=== PATIENT | female | born 1960 | race Caucasian/White ===

== ENCOUNTER 2018-01-11 11:33 | Inpatient (IN) | payer OTHER ==
[2018-01-11 12:13] VITALS: BMI 27.4
--- NOTE | 2018-01-11 14:52 | HP ---
CIWA Score - CIWA Score Nausea/Vomitin Muscle Tremors: 2 Anxiety: 2 Agitation: 2 Paroxysmal Sweats: 3 Orientation: 2-Disoriented Date<2 days Tacttile Disturbances: 2-Mild Itch/Numbness/Burn Auditory Disturbances: 0-None Visual Disturbances: 3-Moderate Sensitivity Headache: 0-None Present CIWA-Ar Total Score: 21 Admission ROS S - HPI Chief Complaint: "I need help for drinking Alcohol." Patient is here to detox from Alcohol. Allergies/Adverse Reactions: Allergies Allergy/AdvReac Type Severity Reaction Status Date / Time egg Allergy Vomiting Verified 01/11/18 12:27 lactose AdvReac Verified 01/11/18 12:29 pneumococcal vaccine AdvReac Verified 01/11/18 12:29 [From Pneumovax 23] shellfish derived AdvReac Rash Verified 01/11/18 12:28 topiramate AdvReac Rash Verified 01/11/18 12:28 History of Present Illness: Patient is a 57 YO female here to detox from Alcohol. This is patient's first Detox admission at [facility]. Patient had 2 previous Detox admissions at [facility] ([place], [place] both approx. 2 years ago. Longest {eroid of sobriety in recent years: approx. 1.5 years (2016 - 2017). Patient is a client at [facility] - Ebola screening Have you traveled outside of the country in the last 21 days: No Have you had contact with anyone from an Ebola affected area: No Have you been sick,other than usual withdrawal symptoms: No Do you have a fever: No - Review of Systems Constitutional: Chills, Diaphoresis, Fever, Loss of Appetite, Malaise, Night Sweats, Changes in sleep, Unintentional Wgt. Loss (Lost approx. 10 lbs. over last 2 months.) EENT: reports: Tearing Respiratory: reports: No Symptoms reported Cardiac: reports: Palpitations, Other ("Blackouts," patient reprots that she loses awarenes of her surroundings. Last episode: approx. 3 weeks ago.) GI: reports: Constipated, Poor Appetite, Indigestion, Abdominal cramping : reports: No Symptoms Reported Musculoskeletal: reports: Back Pain, Joint Pain, Muscle Pain, Neck Pain, Joint Stiffness Integumentary: reports: No Symptoms Reported Neuro: reports: Headache, Numbness (Toes of Right Foot.), Tingling (Toes of Right Foot.), Tremors Endocrine: reports: No Symptoms Reported Hematology: reports: Anemia (Uncertain about type. No current treatment.) Psychiatric: reports: Judgement Intact, Mood/Affect Appropiate, Orientated x3, Anxious, Depressed (Takes meds.) Other Systems: Reviewed and Negative Patient History - Patient Medical History Hx Anemia: Yes (Uncertain about type; No current meds.) Hx Asthma: Yes (Meds.) Hx Chronic Obstructive Pulmonary Disease (COPD): No Hx Cancer: No Hx Cardiac Disorders: Yes (Arrythmia, Uncertain about specific type; Takes ASA Daily.) Hx Congestive Heart Failure: No Hx Hypertension: No Hx Hypercholesterolemia: No Hx Pacemaker: No HX Cerebrovascular Accident: No Hx Seizures: No Hx Dementia: No Hx Diabetes: No Hx Gastrointestinal Disorders: No Hx Liver Disease: No Hx Genitourinary Disorders: No Hx Sexually Transmitted Disorders: No Hx Renal Disease (ESRD): No Hx Thyroid Disease: No Hx Human Immunodeficiency Virus (HIV): No (Last Tested: 12/2017: NEGATIVE.) Hx Hepatitis C: No (Unable to recall when last tested.) Hx Depression: Yes (Meds.) Hx Suicide Attempt: Yes (Hanging (2016). PATIENT DENIES CURRENT SI / HI.) Hx Bipolar Disorder: Yes Hx Schizophrenia: No Other Medical History: DENIES. - Patient Surgical History Past Surgical History: Yes Hx Neurologic Surgery: No Hx Cataract Extraction: No Hx Cardiac Surgery: No Hx Lung Surgery: No Hx Breast Biopsy: No Hx Abdominal Surgery: Yes (2 HERNIA REPAIRS (Age 8 months; Age 24).) Hx Appendectomy: No Hx Cholecystectomy: No Hx Genitourinary Surgery: No Hx Section: No Hx Orthopedic Surgery: No Other Surgical History: BACK SURGERY 2008, 2010, 2012; LIPOMA REMIVED FROM RIGHT ARM: @ 2009. Anesthesia Reaction: No - PPD History Previous Implant?: Yes Documented Results: Negative w/o proof Implanted On Prior R Admission?: No PPD to be Administered?: Yes - Reproductive History Patient is a Female of Child Bearing Age (11 -55 yrs old): Yes Last Menstrual Period: 01/09/09 Patient : No - Smoking Cessation Smoking history: Current every day smoker Have you smoked in the past 12 months: Yes Aproximately how many cigarettes per day: 7 Cigars Per Day: 0 Hx Chewing Tobacco Use: No Initiated information on smoking cessation: No 'Breaking Loose' booklet given: 01/11/18 (GIVEN TO PATIENT.) - Substance & Tx. History Hx Alcohol Use: Yes Hx Substance Use: Yes Substance Use Type: Alcohol, Cocaine Hx Substance Use Treatment: Yes (@ previous Detox admissions at [facility], 2016).) - Substances Abused Alcohol Route: Oral Frequency: Daily Amount used: 3 NIPS OF VODKA, 1 CAN OF BUDWEISER Age of first use: 38 Date of Last Use: 01/11/18 Cocaine Route: Inhalation Frequency: 3-6 times per week Amount used: $40 Age of first use: 28 Date of Last Use: 01/06/18 Family Disease History - Family Disease History Family Disease History: CA: Father (Rectal Ca.), Mother (Lymphatic CA.), Other: Sister (HIV/AIDS; .) Admission Physical Exam [facility] - Vital Signs Vital Signs: Vital Signs - 24 hr 01/11/18 12:10 Temperature 97.0 F L Pulse Rate 55 L Respiratory 20 Rate Blood Pressure 115/81 - Physical General Appearance: Yes: No Apparent Distress, Nourished, Appropriately Dressed , Tremorous, Anxious, Other (Patient ambulates with asssitance of a walker.) HEENTM: Yes: Hearing grossly Normal, Normocephalic, Normal Voice, EJ, Pharynx Normal Respiratory: Yes: Chest Non-Tender, Lungs Clear, No Respiratory Distress, No Accessory Muscle Use Neck: Yes: No masses,lesions,Nodules, Supple, Trachea in good position Breast: Yes: Breast Exam Deferred Cardiology: Yes: Regular Rhythm, Regular Rate, S1, S2 Abdominal: Yes: Normal Bowel Sounds, Non Tender, Flat, Soft Genitourinary: Yes: Within Normal Limits Back: Yes: Decreased Range of Motion Musculoskeletal: Yes: Gait Steady, Back pain, Joint Stiffness, Muscle Pain Extremities: Yes: Normal Capillary Refill, Tremors Neurological: Yes: Fully Oriented, Alert, Normal Mood/Affect, Normal Response Integumentary: Yes: Normal Color, Dry, Warm Lymphatic: Yes: Within Normal Limits - Diagnostic (1) Alcohol dependence with uncomplicated withdrawal Current Visit: Yes Status: Acute (2) Cocaine dependence, uncomplicated Current Visit: Yes Status: Acute (3) Nicotine dependence Current Visit: Yes Status: Chronic Qualifiers: Nicotine product type: cigarettes Substance use status: uncomplicated Qualified Code(s): F17.210 - Nicotine dependence, cigarettes, uncomplicated (4) History of depression Current Visit: Yes Status: Chronic (5) History of bipolar disorder Current Visit: Yes Status: Chronic (6) History of anemia Current Visit: Yes Status: Suspected (7) History of cardiac arrhythmia Current Visit: Yes Status: Suspected (8) Asthma Current Visit: Yes Status: Acute Qualifiers: Asthma severity: moderate Asthma persistence: persistent Asthma complication type: uncomplicated Qualified Code(s): J45.40 - Moderate persistent asthma, uncomplicated Cleared for Admission [facility] - Detox or Rehab S Level of Care: Medically Managed Detox Regimen/Protocol: Librium [facility] Breath Alcohol Content Breath Alcohol Content: 0.002 Urine Pregancy Test - Result Urine Test Results: Negative- NO Line Present Urine Drug Screen - Results Drug Screen Negative: No Urine Drug Screen Results: MIKKI-Cocaine, MTD-Methadone, TCA-Tricyclic Antidepress
[2018-01-11] MEDS ORDERED: LOPERAMIDE HCL 2 MG CAPSULE PO PRN (15:30)
[2018-01-11] MEDS ORDERED: IBUPROFEN 400 MG TABLET (FP) PO PRN (15:30)
[2018-01-11] MEDS ORDERED: MAGNESIUM HYDROX 2400MG/30ML ORAL SUSPENSION 30 ML CUP PO PRN (15:30)
[2018-01-11] MEDS ORDERED: chlordiazePOXIDE HCL 25 MG CAPSULE PO PRN (15:30)
[2018-01-11] MEDS ORDERED: guaiFENesin/D-METHORPHAN HB 10 ML UNIT-DOSE CUPS PO PRN (15:30)
[2018-01-11] MEDS ORDERED: P-EPHED 60MG/TRIPROLIDI 2.5MG TABLET PO PRN (15:30)
[2018-01-11] MEDS ORDERED: MAGNESIUM CITRATE 300 ML BOTTLE PO PRN (15:30)
[2018-01-11] MEDS ORDERED: NICOTINE POLACRILEX 2 MG GUM BUC PRN (15:30)
[2018-01-11] MEDS ORDERED: MAG HYDROX/AL HYDROX/SIMETH 30 ML UNIT-DOSE CUP PO PRN (15:30)
[2018-01-11] MEDS ORDERED: ACETAMINOPHEN 325 MG TABLET (FP) PO PRN (15:30)
[2018-01-11] MEDS ORDERED: MENTHOL/PHENOL 1 EACH UD MM PRN (15:30)
[2018-01-11] MEDS ORDERED: chlordiazePOXIDE HCL 25 MG CAPSULE PO ONE (15:45)
[2018-01-11] MEDS: chlordiazePOXIDE HCL 25 MG CAPSULE PO SCH ×2 (18:47→23:03)
[2018-01-11] MEDS ORDERED: MELATONIN 5 MG TABLETS PO PRN (22:00)
[2018-01-11] MEDS: HYDROCORTISONE 0.5% TOPICAL CREAM 30 GM TUBE TP SCH (23:03)
[2018-01-11] MEDS: SODIUM CHLORIDE NASAL SPRAY 44 ML BOTTLE NS SCH (23:04)
[2018-01-11] MEDS: BUDESONIDE/FORMETEROL FUMARATE 160/4.5 mcg INHALER IH SCH (23:04)
[2018-01-11] MEDS: THIAMINE HCL 100 MG TABLET (FP) PO SCH (23:04)
[2018-01-12] MEDS ORDERED: METHADONE HCL 10 MG TABLET (FOR DETOX USE ONLY) ONE (05:24)
[2018-01-12] MEDS ORDERED: METHADONE HCL 40 MG DISPERSABLE TABLET ONE (05:24)
[2018-01-12] MEDS ORDERED: METHADONE HCL 10 MG TABLET PO SCH ×2 (06:00)
[2018-01-12] MEDS: METHADONE 40 MG, METHADONE (DETOX) 20 MG PO SCH (07:16)
[2018-01-12] MEDS: chlordiazePOXIDE HCL 25 MG CAPSULE PO SCH ×4 (07:20→22:38)
--- NOTE | 2018-01-12 09:29 | CONSULT ---
[facility] Psychiatric Consult - Data Date of interview: 01/12/18 Admission source: [facility] Identifying data: This is 57 years old female, single mother of five, living with partner, with no psychiatric hospitalization history, on SSI, is here to detox from Alcohol, reporting Alcohol withdrawal symptoms. This is patient's first Detox admission at [facility]. Reports abusing Cocaine and Methadon as well. Currently onn MMTP 60mg pr day. Substance Abuse History: - Smoking Cessation. Smoking history: Current every day smoker. Have you smoked in the past 12 months: Yes. Aproximately how many cigarettes per day: 7. Cigars Per Day: 0. Hx Chewing Tobacco Use: No. Initiated information on smoking cessation: No. 'Breaking Loose' booklet given : 01/11/18 (GIVEN TO PATIENT.). - Substance & Tx. History. Hx Alcohol Use: Yes. Hx Substance Use: Yes. Substance Use Type: Alcohol, Cocaine. Hx Substance Use Treatment: Yes (@ previous Det[place] admissions at [facility] 2016[place]). - Substances Abused. Alcohol. Route: Oral. Frequency: Daily. Amount used: 3 NIPS OF VODKA, 1 CAN OF BUDWEISER. Age of first use: 38. Date of Last Use: 01/11/18. Cocaine. Route: Inhalation. Frequency: 3-6 times per week. Amount used: $40. Age of first use: 28. Date of Last Use: 01/06/18 Medical History: Asthma, Anemia history, MMTP 60mg /day Psychiatric History: Patient reports history of depression anhd anxiety, reports taking prior jaycee admission: Buspar 15mg poqd. Ambien 10mg po qhs. Patient reports suicidal attempt by hanging herself on abput 30 years ago, no suicidal history since then. As per computer carries Bipolar Disorder. Physical/Sexual Abuse/Trauma History: Denies Additional Comment: Urine Drug Screen Results: MIKKI-Cocaine, MTD-Methadone, TCA- Tricyclic Antidepress. Buspar 15mg poqd. Ambien 10mg po qhs Mental Status Exam - Mental Status Exam Alert and Oriented to: Person Cognitive Function: Fair Patient Appearance: Unkempt Mood: Sad Affect: Mood Congruent Patient Behavior: Cooperative Speech Pattern: Appropriate Voice Loudness: Mildly Soft/Quiet Thought Process: Goal Oriented Thought Disorder: Being Controlled Hallucinations: Denies Suicidal Ideation: Denies Homicidal Ideation: Denies Insight/Judgement: Fair Sleep: Difficulty falling asleep Muscle strength/Tone: Mild Hypotonicity Gait/Station: Shuffling Additional Comments: Buspar 15mg poqd. Ambien 10mg po qhs Psychiatric Findings - Problem List ([place] 1, 2,3) (1) Alcohol dependence with uncomplicated withdrawal Current Visit: Yes Status: Acute (2) Asthma Current Visit: Yes Status: Acute Qualifiers: Asthma severity: moderate Asthma persistence: persistent Asthma complication type: uncomplicated Qualified Code(s): J45.40 - Moderate persistent asthma, uncomplicated (3) Cocaine dependence, uncomplicated Current Visit: Yes Status: Acute (4) History of bipolar disorder Current Visit: Yes Status: Suspected (5) Nicotine dependence Current Visit: Yes Status: Chronic Qualifiers: Nicotine product type: cigarettes Substance use status: uncomplicated Qualified Code(s): F17.210 - Nicotine dependence, cigarettes, uncomplicated (6) History of anemia Current Visit: Yes Status: Suspected (7) History of cardiac arrhythmia Current Visit: Yes Status: Suspected - Initial Treatment Plan Initial Treatment Plan: Buspar 15mg poqd. Ambien 10mg po qhs
[2018-01-12 10:07] LABS: HEMATOCRIT 33.2 % (32.4-45.2); HEMOGLOBIN 10.4 GM/dL (10.7-15.3); MCH 22.3 pg (25.7-33.7); MCHC 31.4 g/dl (32.0-36.0); MEAN PLT VOLUME 10.8 fl (7.5-11.1); PLATELET COUNT 221 K/MM3 (134-434); RBC 4.67 M/mm3 (3.60-5.2); RDW 15.1 % (11.6-15.6); WHITE BLOOD COUNT 8.1 K/mm3 (4.0-10.0)
[2018-01-12 10:08] LABS: ALBUMIN 3.6 g/dl (3.4-5.0); ANION GAP 5 (8-16); BLOOD UREA NITROGEN 11 mg/dL (7-18); CALCIUM 8.9 mg/dL (8.5-10.1); CHLORIDE 108 mmol/L (98-107); CO2 32 mmol/L (21-32); GLUCOSE,RANDOM 74 mg/dL (74-106); POTASSIUM 3.7 mmol/L (3.5-5.1); SODIUM 145 mmol/L (136-145)
--- NOTE | 2018-01-12 10:08 | EKG ---
Test Reason : Blood Pressure : / mmHG Vent. Rate : 051 BPM Atrial Rate : 051 BPM P-R Int : 178 ms QRS Dur : 116 ms QT Int : 466 ms P-R-T Axes : -03 -29 -34 degrees QTc Int : 429 ms SINUS BRADYCARDIA LEFT VENTRICULAR HYPERTROPHY WITH QRS WIDENING T WAVE ABNORMALITY, CONSIDER ANTEROLATERAL ISCHEMIA ABNORMAL ECG NO PREVIOUS ECGS AVAILABLE Confirmed by LUCRETIA TAFOYA MD ([id number]) on 01/12/2018 10:08:01 AM Referred By: Confirmed By:LUCRETIA TAFOYA MD
[2018-01-12 10:11] LABS: ALK PHOS 132 U/L (45-117); BILIRUBIN,TOTAL 0.2 mg/dL (0.2-1.0); CREATININE 0.9 mg/dL (0.55-1.02); SGOT/AST 23 U/L (15-37); SGPT/ALT 26 U/L (12-78); TOT PROT 6.6 g/dl (6.4-8.2)
[2018-01-12] MEDS: LORATADINE 10 MG TABLET PO SCH (10:39)
[2018-01-12] MEDS: PRENATAL VITAMINS W/ FOLIC ACID TABLET (FP) PO SCH (10:39)
[2018-01-12] MEDS: ASPIRIN COATED 81 MG TABLET.EC PO SCH (10:39)
[2018-01-12] MEDS: PANTOPRAZOLE 20 MG TABLET (FP) PO SCH (10:39)
[2018-01-12] MEDS: SODIUM CHLORIDE NASAL SPRAY 44 ML BOTTLE NS SCH ×2 (10:40→22:36)
[2018-01-12] MEDS: HYDROCORTISONE 0.5% TOPICAL CREAM 30 GM TUBE TP SCH ×2 (10:45→22:38)
[2018-01-12] MEDS: BUDESONIDE/FORMETEROL FUMARATE 160/4.5 mcg INHALER IH SCH ×2 (10:45→23:06)
--- NOTE | 2018-01-12 10:59 | PN ---
S CIWA - CIWA Score Nausea/Vomitin Muscle Tremors: 3 Anxiety: 3 Agitation: 2 Paroxysmal Sweats: 1-Minimal Palms Moist Orientation: 0-Oriented Tacttile Disturbances: 1-Very Mild Itch/Numbness Auditory Disturbances: 1-Very Mild Visual Disturbances: 0-None Headache: 2-Mild CIWA-Ar Total Score: 16 S Progress Note (SOAP) Subjective: alert,irritable,anxious,interrupted sleep,tremor Objective: 01/12/18 10:55 Vital Signs Temperature 98.2 F 01/12/18 09:56 Pulse Rate 54 L 01/12/18 09:56 Respiratory Rate 18 01/12/18 09:56 Blood Pressure 100/69 01/12/18 09:56 O2 Sat by Pulse Oximetry (%) 01/12/18 10:56 ekg sinus bradycardia 51/min,inverted t in 3,avfv2 to v6 no chest pain,no sob,no dizziness Laboratory Last Values WBC 8.1 K/mm3 (4.0-10.0) 01/12/18 05:45 RBC 4.67 M/mm3 (3.60-5.2) 01/12/18 05:45 Hgb 10.4 GM/dL (10.7-15.3) L 01/12/18 05:45 Hct 33.2 % (32.4-45.2) 01/12/18 05:45 MCV 71.0 fl (80-96) L 01/12/18 05:45 MCH 22.3 pg (25.7-33.7) L 01/12/18 05:45 MCHC 31.4 g/dl (32.0-36.0) L 01/12/18 05:45 RDW 15.1 % (11.6-15.6) 01/12/18 05:45 Plt Count 221 K/MM3 (134-434) 01/12/18 05:45 MPV 10.8 fl (7.5-11.1) 01/12/18 05:45 Sodium 145 mmol/L (136-145) 01/12/18 05:45 Potassium 3.7 mmol/L (3.5-5.1) 01/12/18 05:45 Chloride 108 mmol/L (98-107) H 01/12/18 05:45 Carbon Dioxide 32 mmol/L (21-32) 01/12/18 05:45 Anion Gap 5 (8-16) L 01/12/18 05:45 BUN 11 mg/dL (7-18) 01/12/18 05:45 Creatinine 0.9 mg/dL (0.55-1.02) 01/12/18 05:45 Creat Clearance w eGFR > 60 (>60) 01/12/18 05:45 Random Glucose 74 mg/dL (74-106) 01/12/18 05:45 Calcium 8.9 mg/dL (8.5-10.1) 01/12/18 05:45 Total Bilirubin 0.2 mg/dL (0.2-1.0) 01/12/18 05:45 AST 23 U/L (15-37) 01/12/18 05:45 ALT 26 U/L (12-78) 01/12/18 05:45 Alkaline Phosphatase 132 U/L (45-117) H 01/12/18 05:45 Total Protein 6.6 g/dl (6.4-8.2) 01/12/18 05:45 Albumin 3.6 g/dl (3.4-5.0) 01/12/18 05:45 RPR Titer Nonreactive (NONREACTIVE) 01/12/18 05:45 Assessment: 01/12/18 10:59 withdrawal symptom Plan: continue detox
[2018-01-12] MEDS ORDERED: ZOLPIDEM TARTRATE 10 MG TABLET (PARK CARE ONLY) PO PRN (22:00)
[2018-01-12] MEDS: THIAMINE HCL 100 MG TABLET (FP) PO SCH (22:35)
[2018-01-13] MEDS ORDERED: METHADONE HCL 10 MG TABLET (FOR DETOX USE ONLY) ONE (04:51)
[2018-01-13] MEDS ORDERED: METHADONE HCL 40 MG DISPERSABLE TABLET ONE (04:51)
[2018-01-13] MEDS: METHADONE 40 MG, METHADONE (DETOX) 20 MG PO SCH (05:24)
[2018-01-13] MEDS: chlordiazePOXIDE HCL 25 MG CAPSULE PO SCH ×2 (05:24→10:41)
[2018-01-13] MEDS: PRENATAL VITAMINS W/ FOLIC ACID TABLET (FP) PO SCH (10:40)
[2018-01-13] MEDS: HYDROCORTISONE 0.5% TOPICAL CREAM 30 GM TUBE TP SCH ×2 (10:40→22:35)
[2018-01-13] MEDS: ASPIRIN COATED 81 MG TABLET.EC PO SCH (10:40)
[2018-01-13] MEDS: LORATADINE 10 MG TABLET PO SCH (10:40)
[2018-01-13] MEDS: PANTOPRAZOLE 20 MG TABLET (FP) PO SCH (10:40)
[2018-01-13] MEDS: SODIUM CHLORIDE NASAL SPRAY 44 ML BOTTLE NS SCH ×2 (10:41→23:01)
[2018-01-13] MEDS: BUDESONIDE/FORMETEROL FUMARATE 160/4.5 mcg INHALER IH SCH ×2 (10:41→22:23)
--- NOTE | 2018-01-13 11:28 | PN ---
S CIWA - CIWA Score Nausea/Vomitin Muscle Tremors: 3 Anxiety: 2 Agitation: 2 Paroxysmal Sweats: 1-Minimal Palms Moist Orientation: 0-Oriented Tacttile Disturbances: 1-Very Mild Itch/Numbness Auditory Disturbances: 1-Very Mild Visual Disturbances: 0-None Headache: 2-Mild CIWA-Ar Total Score: 15 [facility] Progress Note (SOAP) Subjective: alert,irritable,anxious,interrupted sleep,tremor Objective: 01/13/18 11:27 Vital Signs Temperature 98.2 F 01/13/18 09:57 Pulse Rate 69 01/13/18 09:57 Respiratory Rate 18 01/13/18 09:57 Blood Pressure 110/70 01/13/18 09:57 O2 Sat by Pulse Oximetry (%) 01/13/18 11:27 repeat ua Assessment: 01/13/18 11:27 withdrawal symptom Plan: continue detox
[2018-01-13 14:44] LABS: URINE APPEARANCE SLCLOUDY; URINE BILIRUBIN NEGATIVE (<2.0 mg/dL); URINE COLOR YELLOW; URINE GLUCOSE (UA) NEGATIVE (NEGATIVE); URINE KETONE NEGATIVE (NEGATIVE); URINE NITRITE NEGATIVE (NEGATIVE); URINE PROTEIN NEGATIVE (NEGATIVE); URINE UROBILINOGEN NEGATIVE mg/dL (0.2-1.0)
[2018-01-13 14:48] LABS: URINE LEUK ESTERASE 2+ (NEGATIVE)
[2018-01-13 14:52] LABS: CALCIUM OXALATE CRYSTALS MODERATE /hpf (NONE SEEN); EPI CELLS FEW /HPF (FEW); URINE MUCUS RARE
[2018-01-13] MEDS: chlordiazePOXIDE 5 MG CAPSULE PO SCH ×2 (17:53→22:21)
[2018-01-13] MEDS: THIAMINE HCL 100 MG TABLET (FP) PO SCH (22:21)
[2018-01-14] MEDS ORDERED: METHADONE HCL 40 MG DISPERSABLE TABLET ONE (04:47)
[2018-01-14] MEDS ORDERED: METHADONE HCL 10 MG TABLET (FOR DETOX USE ONLY) ONE (04:48)
[2018-01-14] MEDS: chlordiazePOXIDE 5 MG CAPSULE PO SCH ×2 (05:40→10:35)
[2018-01-14] MEDS: METHADONE 40 MG, METHADONE (DETOX) 20 MG PO SCH (05:41)
--- NOTE | 2018-01-14 09:35 | PN ---
[facility] Progress Note (SOAP) Subjective: alert,interrupted sleep,anxious Objective: 01/14/18 09:33 Vital Signs Temperature 100.5 F H 01/14/18 09:22 Pulse Rate 71 01/14/18 09:22 Respiratory Rate 18 01/14/18 09:22 Blood Pressure 111/79 01/14/18 09:22 O2 Sat by Pulse Oximetry (%) Assessment: withdrawal symptom 01/14/18 09:34 Plan: continue detox,discharge in am
[2018-01-14] MEDS: PRENATAL VITAMINS W/ FOLIC ACID TABLET (FP) PO SCH (10:35)
[2018-01-14] MEDS: ASPIRIN COATED 81 MG TABLET.EC PO SCH (10:35)
[2018-01-14] MEDS: LORATADINE 10 MG TABLET PO SCH (10:35)
[2018-01-14] MEDS: SODIUM CHLORIDE NASAL SPRAY 44 ML BOTTLE NS SCH ×2 (10:35→23:14)
[2018-01-14] MEDS: PANTOPRAZOLE 20 MG TABLET (FP) PO SCH (10:35)
[2018-01-14] MEDS: HYDROCORTISONE 0.5% TOPICAL CREAM 30 GM TUBE TP SCH ×2 (10:36→23:14)
[2018-01-14] MEDS: BUDESONIDE/FORMETEROL FUMARATE 160/4.5 mcg INHALER IH SCH ×2 (10:36→23:14)
[2018-01-14] MEDS: chlordiazePOXIDE HCL 10 MG CAPSULE PO SCH ×2 (17:58→23:16)
[2018-01-14] MEDS: THIAMINE HCL 100 MG TABLET (FP) PO SCH (23:15)
[2018-01-15] MEDS ORDERED: METHADONE HCL 10 MG TABLET (FOR DETOX USE ONLY) ONE (04:28)
[2018-01-15] MEDS ORDERED: METHADONE HCL 40 MG DISPERSABLE TABLET ONE (04:28)
[2018-01-15] MEDS: METHADONE 40 MG, METHADONE (DETOX) 20 MG PO SCH (05:27)
[2018-01-15] MEDS: chlordiazePOXIDE HCL 10 MG CAPSULE PO SCH (05:27)
[2018-01-15] MEDS: PRENATAL VITAMINS W/ FOLIC ACID TABLET (FP) PO SCH (09:33)
[2018-01-15] MEDS: ASPIRIN COATED 81 MG TABLET.EC PO SCH (09:33)
[2018-01-15] MEDS: PANTOPRAZOLE 20 MG TABLET (FP) PO SCH (09:34)
[2018-01-15] MEDS: LORATADINE 10 MG TABLET PO SCH (09:34)
[2018-01-15] MEDS: BUDESONIDE/FORMETEROL FUMARATE 160/4.5 mcg INHALER IH SCH (09:35)
[2018-01-15] MEDS: SODIUM CHLORIDE NASAL SPRAY 44 ML BOTTLE NS SCH (09:35)
[2018-01-15 10:09] VITALS: BP 105/70; PULSE 67; TEMP 98.8
--- NOTE | 2018-01-15 14:27 | DS ---
[facility] Detox Discharge Summary Admission Date: 01/11/18 Discharge Date: 01/15/18 - Physical Exam Results Vital Signs: Vital Signs Temperature 98.8 F 01/15/18 10:08 Pulse Rate 67 01/15/18 10:08 Respiratory Rate 18 01/15/18 10:08 Blood Pressure 105/70 01/15/18 10:08 O2 Sat by Pulse Oximetry (%) Pertinent Admission Physical Exam Findings: Withdrawal sx Laboratory Last Values WBC 8.1 K/mm3 (4.0-10.0) 01/12/18 05:45 RBC 4.67 M/mm3 (3.60-5.2) 01/12/18 05:45 Hgb 10.4 GM/dL (10.7-15.3) L 01/12/18 05:45 Hct 33.2 % (32.4-45.2) 01/12/18 05:45 MCV 71.0 fl (80-96) L 01/12/18 05:45 MCH 22.3 pg (25.7-33.7) L 01/12/18 05:45 MCHC 31.4 g/dl (32.0-36.0) L 01/12/18 05:45 RDW 15.1 % (11.6-15.6) 01/12/18 05:45 Plt Count 221 K/MM3 (134-434) 01/12/18 05:45 MPV 10.8 fl (7.5-11.1) 01/12/18 05:45 Sodium 145 mmol/L (136-145) 01/12/18 05:45 Potassium 3.7 mmol/L (3.5-5.1) 01/12/18 05:45 Chloride 108 mmol/L (98-107) H 01/12/18 05:45 Carbon Dioxide 32 mmol/L (21-32) 01/12/18 05:45 Anion Gap 5 (8-16) L 01/12/18 05:45 BUN 11 mg/dL (7-18) 01/12/18 05:45 Creatinine 0.9 mg/dL (0.55-1.02) 01/12/18 05:45 Creat Clearance w eGFR > 60 (>60) 01/12/18 05:45 Random Glucose 74 mg/dL (74-106) 01/12/18 05:45 Calcium 8.9 mg/dL (8.5-10.1) 01/12/18 05:45 Total Bilirubin 0.2 mg/dL (0.2-1.0) 01/12/18 05:45 AST 23 U/L (15-37) 01/12/18 05:45 ALT 26 U/L (12-78) 01/12/18 05:45 Alkaline Phosphatase 132 U/L (45-117) H 01/12/18 05:45 Total Protein 6.6 g/dl (6.4-8.2) 01/12/18 05:45 Albumin 3.6 g/dl (3.4-5.0) 01/12/18 05:45 Urine Color Yellow 01/13/18 10:00 Urine Appearance Slcloudy 01/13/18 10:00 Urine pH 5.0 (5.0-8.0) 01/13/18 10:00 Ur Specific [place] 1.017 (1.001-1.035) 01/13/18 10:00 Urine Protein Negative (NEGATIVE) 01/13/18 10:00 Urine Glucose (UA) Negative (NEGATIVE) 01/13/18 10:00 Urine Ketones Negative (NEGATIVE) 01/13/18 10:00 Urine Blood Negative (NEGATIVE) 01/13/18 10:00 Urine Nitrite Negative (NEGATIVE) 01/13/18 10:00 Urine Bilirubin Negative (<2.0 mg/dL) 01/13/18 10:00 Urine Urobilinogen Negative mg/dL (0.2-1.0) 01/13/18 10:00 Ur Leukocyte Esterase 2+ (NEGATIVE) H 01/13/18 10:00 Urine WBC (Auto) 5 /hpf (3-5) 01/13/18 10:00 Urine RBC (Auto) 2 /hpf (0-3) 01/13/18 10:00 Ur Epithelial Cells Few /HPF (FEW) 01/13/18 10:00 Calcium Oxalate Crystal Moderate /hpf (NONE SEEN) 01/13/18 10:00 Urine Mucus Rare 01/13/18 10:00 RPR Titer Nonreactive (NONREACTIVE) 01/12/18 05:45 Labs noted - Treatment Hospital Course: Detox Protocol Followed, Detoxed Safely, Responded well, Discharged Condition Good, Rehab Referral Accepted - Medication Discharge Medications: Ambulatory Orders Acetaminophen [Extra Strength Non-Aspirin] 500 mg PO BID PRN 01/11/18 Albuterol Sulfate [Proventil HFA Inhaler -] 1 - 2 inh PO TID 01/11/18 Aspirin [Aspirin EC] 81 mg PO DAILY 01/11/18 Budesonide/Formeterol Fumarate [SYMBICORT 160/4.5mcg -] 1 inh PO BID 01/11/18 Cetirizine HCl 10 mg PO DAILY PRN 01/11/18 Loratadine [Claritin -] 10 mg PO DAILY 01/11/18 Methadone [Dolophine -] 63 mg PO DAILY 01/11/18 Omeprazole 20 mg PO DAILY 01/11/18 Oxycodone HCl/Acetaminophen [Oxycodone-Acetaminophen 10-325] 1 each PO BID PRN 01/11/18 Sodium Chloride Nasal [place] [[place] Nasal [place]] 2 spray NS BID 01/11/18 Zolpidem Tartrate [Ambien] 10 mg PO HS 01/11/18 Buspirone HCl [Buspar -] 15 mg PO DAILY #30 tablet 01/12/18 - Diagnosis (1) Alcohol dependence with uncomplicated withdrawal Status: Acute (2) Cocaine dependence, uncomplicated Status: Acute (3) Nicotine dependence Status: Chronic Qualifiers: Nicotine product type: cigarettes Substance use status: uncomplicated Qualified Code(s): F17.210 - Nicotine dependence, cigarettes, uncomplicated - AMA Did Patient Leave Against Medical Advice: No
== END 2018-01-15 09:37 | disposition home or self-care (01) | DRG 773 ==
LOC: YASAS 11:33 → Y6N 13:32
PROVIDERS: ADMIT Surgery; ATTEND Surgery
PROC: HZ2ZZZZ Detoxification Services for Substance Abuse Treatment (ICD-10-PCS; principal; 2018-01-11)
DX: F10.230 Alcohol dependence with withdrawal, uncomplicated (principal); F11.20 Opioid dependence, uncomplicated; F14.20 Cocaine dependence, uncomplicated; F17.210 Nicotine dependence, cigarettes, uncomplicated; J45.40 Moderate persistent asthma, uncomplicated; Z86.2 Personal history of diseases of the blood and blood-forming organs and certain disorders involving the immune mechanism; Z86.59 Personal history of other mental and behavioral disorders; Z86.79 Personal history of other diseases of the circulatory system; Z79.82 Long term (current) use of aspirin; Z91.5 Personal history of self-harm
CPT/HCPCS: 36415; 80053; 81003; 81015; 85027; 86593; 93005; 93010